=== PATIENT | female | born 1955 | race Caucasian/White ===

== ENCOUNTER 2025-09-11 02:05 | Inpatient (IN) | payer MEDICARE ==
[2025-09-11 02:41] LABS: #Basophils 0.03 10x3/uL (0.0-0.2); #Eosinophils 0.15 10x3/uL (0.0-0.7); #Monocytes 0.93 10x3/uL (0.11-0.59); #Neutrophils 4.89 10x3/uL (1.40-6.50); %Basophils 0.5 % (0.0-1.0); %Eosinophils 2.3 % (0.0-10.0); %Lymphocytes 7.1 % (21.0-51.0); %Monocytes 14.3 % (0.0-10.0); %Neutrophils 75.3 % (42.0-75.0); Hematocrit 39.4 % (36.0-47.0); Hemoglobin 12.9 g/dL (12.0-16.0); Mean Corpuscular Hemoglobin 28.9 pg (27.0-31.0); Mean Corpuscular Volume 88.1 fL (78.0-98.0); Platelet Count 226 10x3/uL (130-400); Red Blood Cell (RBC) Count 4.47 mill/uL (4.20-5.40); White Blood Cell (WBC) Count 6.49 10x3/uL (4.8-10.8)
[2025-09-11 03:00] LABS: ALT (SGPT) 14 U/L (Less than 34); AST (SGOT) 17 U/L (11-34); Albumin 3.7 g/dL (3.1-4.5); Alkaline Phosphatase 86 U/L (40-110); Anion Gap 15 mmol/L (10-20); BUN (Urea Nitrogen) 10 mg/dL (9.8-20.1); Bilirubin, Total 0.5 mg/dL (0.3-1.2); Calc. Creatinine Clearance 0 mL/min (70-130); Calcium 8.9 mg/dL (7.8-10.44); Carbon Dioxide 24 mmol/L (23-31); Chloride 104 mmol/L (98-107); Globulin 3.4 g/dL (2.4-3.5); Glucose 123 mg/dL (83-110); Potassium 3.8 mmol/L (3.5-5.1); Sodium 139 mmol/L (136-145)
[2025-09-11] MEDS ORDERED: Acetaminophen 500 MG TAB ONE (03:15)
[2025-09-11] MEDS ORDERED: Cefepime 2 GM VIAL ONE (03:31)
[2025-09-11] MEDS ORDERED: VANCOMYCIN 2 GRAM/400 ML BAG 400 ML ONE (03:32)
[2025-09-11] MEDS ORDERED: diphenhydrAMINE 50 MG/ML VIAL ONE (06:31)
[2025-09-11] MEDS ORDERED: Acetaminophen 325 MG TAB PO PRN (07:14)
[2025-09-11] MEDS ORDERED: Calcium Carbonate 500 MG ChewTAB PO PRN (09:02)
[2025-09-11 11:11] VITALS: BMI 25.5
[2025-09-11] MEDS: Linezolid 600 MG in Premix 1 BAG IVPB SCH (12:30)
[2025-09-11] MEDS ORDERED: Lidocaine 1% w/Epinephrine 1:100K 20 ML VIAL ONE (12:51)
[2025-09-11] MEDS ORDERED: Sodium Bicarbonate 2.5 MEQ/5 ML SDV ONE (12:51)
[2025-09-11] MEDS ORDERED: Iopamidol-370 76% 500 ML MDV (1 ML CHARGE) ONE (13:24)
[2025-09-11 17:27] LABS: WBC/Nucleated-Auto (BF) 647 /cu.mm
[2025-09-11 18:02] LABS: BF Segmented Neutrophils 74 %; Cell Count Non Hematic 20 %
[2025-09-11] MEDS: Acetaminophen 325 MG TAB PO PRN (21:34)
[2025-09-11] MEDS: Guaifenesin DM 100-10/5 ML UDCUP PO PRN (22:27)
[2025-09-12 06:25] LABS: Hematocrit 35.9 % (36.0-47.0); Hemoglobin 11.7 g/dL (12.0-16.0); Mean Corpuscular Hemoglobin 29.0 pg (27.0-31.0); Mean Corpuscular Volume 88.9 fL (78.0-98.0); Platelet Count 171 10x3/uL (130-400); Red Blood Cell (RBC) Count 4.04 mill/uL (4.20-5.40); White Blood Cell (WBC) Count 4.05 10x3/uL (4.8-10.8)
[2025-09-12 06:42] LABS: Anion Gap 14 mmol/L (10-20); BUN (Urea Nitrogen) 8 mg/dL (9.8-20.1); Calc. Creatinine Clearance 80 mL/min (70-130); Calcium 8.2 mg/dL (7.8-10.44); Carbon Dioxide 22 mmol/L (23-31); Chloride 107 mmol/L (98-107); Glucose 121 mg/dL (83-110); Potassium 3.5 mmol/L (3.5-5.1); Sodium 139 mmol/L (136-145)
[2025-09-12 06:50] LABS: Anisocytosis SLIGHT = 6-15 cells HPF (0-5); Platelet Adequacy Comment Platelets Normal; Poikilocytosis SLIGHT = 6-15 cells HPF (0-5); Polychromasia SLIGHT = 2-3 cells HPF (0-2)
[2025-09-12] MEDS: Melatonin 3 MG TAB PO PRN (20:45)
[2025-09-13 07:16] LABS: Hematocrit 36.0 % (36.0-47.0); Hemoglobin 11.6 g/dL (12.0-16.0); Mean Corpuscular Hemoglobin 29.2 pg (27.0-31.0); Mean Corpuscular Volume 90.7 fL (78.0-98.0); Platelet Count 152 10x3/uL (130-400); Red Blood Cell (RBC) Count 3.97 mill/uL (4.20-5.40); White Blood Cell (WBC) Count 2.51 10x3/uL (4.8-10.8)
[2025-09-13 07:31] LABS: Anion Gap 11 mmol/L (10-20); BUN (Urea Nitrogen) 7 mg/dL (9.8-20.1); Calc. Creatinine Clearance 78 mL/min (70-130); Calcium 8.2 mg/dL (7.8-10.44); Carbon Dioxide 26 mmol/L (23-31); Chloride 105 mmol/L (98-107); Glucose 88 mg/dL (83-110); Potassium 3.7 mmol/L (3.5-5.1); Sodium 138 mmol/L (136-145)
[2025-09-13 07:42] LABS: Platelet Adequacy Comment Platelets Normal; Polychromasia SLIGHT = 2-3 cells HPF (0-2); Smudge Cells 18.2 %; Toxic Granulation SLIGHT
[2025-09-13] MEDS: Ondansetron PF 4 MG/2 ML Vial IVP PRN (21:07)
[2025-09-13 21:54] LABS: Campy jejuni + coli by PCR Negative (Negative); STEC Shiga Toxin 1+2 Negative (Negative); Salmonella spp. by PCR Negative (Negative); Shigella spp + EIEC by PCR Negative (Negative)
[2025-09-14 08:42] VITALS: BP 113/67; TEMP 97.7
== END 2025-09-14 15:02 | disposition home or self-care (01) | DRG 392 ==
LOC: ERS 02:05 → T4-B 07:17
PROVIDERS: ADMIT Internal Medicine; ATTEND Internal Medicine
PROC: 0H9T3ZZ Drainage of Right Breast, Percutaneous Approach (ICD-10-PCS; principal; 2025-09-11)
PROC: 3E03329 Introduction of Other Anti-infective into Peripheral Vein, Percutaneous Approach (ICD-10-PCS; 2025-09-11)
DX: A08.4 Viral intestinal infection, unspecified (principal); L76.34 Postprocedural seroma of skin and subcutaneous tissue following other procedure; E03.9 Hypothyroidism, unspecified; N18.2 Chronic kidney disease, stage 2 (mild); Z88.8 Allergy status to other drugs, medicaments and biological substances; Z98.890 Other specified postprocedural states; Z88.1 Allergy status to other antibiotic agents; D05.11 Intraductal carcinoma in situ of right breast; J45.909 Unspecified asthma, uncomplicated; Y83.8 Other surgical procedures as the cause of abnormal reaction of the patient, or of later complication, without mention of misadventure at the time of the procedure
CPT/HCPCS: 36415; 49406; 71275; 77012; 80048; 80053; 83605; 83690; 83880; 84443; 84484; 85025; 85060; 86141; 87040; 87070; 87081; 87205; 87428; 87505; 89051; 93005; 96365; 96366; 96367; 96375; J0692; J1200; J2020; J2250; J2405; J2919; J3010; J3375; J7120; Q0162; Q9967